=== PATIENT | female | born 1935 | race Caucasian/White ===

== ENCOUNTER 2016-08-04 07:25 | Day surgery (SDC) | payer MEDICARE, BC ==
[2016-07-30 10:03] LABS: HEMATOCRIT 40.5 % (36.0-48.0); HEMOGLOBIN 13.6 g/dL (12.0-16.0)
[2016-07-30 10:12] LABS: BUN (BLOOD UREA NITROGEN) 15 MG/DL (6-23); CALCIUM, SERUM 9.7 MG/DL (8.5-10.4); CHLORIDE, SERUM 103 MMOL/L (96-112); CO2 (CARBON DIOXIDE) 34 MMOL/L (24-34); CREATININE 0.76 MG/DL (0.55-1.02); GFR AFRICAN AMERICAN 85 ML/MIN (>=60); GFR NON AFRICAN AMERICAN 74 ML/MIN (>=60); GLUCOSE, SERUM 93 MG/DL (60-99); SODIUM, SERUM 142 MMOL/L (135-148)
--- NOTE | ~2016-08-04 | OP ---
Record Of [facility] [address] [place]. [address] NAME: RABIA MENDOZA : 35 STATUS : [facility]#: [id number] AGE: 81 ADM/REG DATE : 08/04/16 MR#: [id number] REPORT SERV DATE: 08/04/16 DICTATED BY: LUCIAN DYE DATE: 08/04/16 REPORT STATUS : Draft TRANSCRIBED BY: MODL DATE: 08/04/16 DATE OF PROCEDURE: 08/04/2016 PREOPERATIVE DIAGNOSES: 1. Nasal septal fracture. 2. Severe nasal obstruction. 3. Bilateral inferior turbinate hypertrophy. POSTOPERATIVE DIAGNOSES: 1. Nasal septal fracture. 2. Severe nasal obstruction. 3. Bilateral inferior turbinate hypertrophy. PROCEDURES: 1. Closed reduction of nasal fracture. 2. Septoplasty. 3. Bilateral inferior turbinoplasty. ANESTHESIA: General. COMPLICATIONS: None. COUNTS: All counts correct following the procedure. ESTIMATED BLOOD LOSS: 20 mL. PREOPERATIVE INFORMED CONSENT: We discussed the risks and benefits of surgery including, but not limited to bleeding, infection, possible CSF leak, possible septal perforation, possible saddle nose deformity, possible persistent nasal obstruction despite surgery. Consent is on the chart. PROCEDURE IN DETAIL: The patient was brought to the operating suite, placed on the operating table in supine position. General endotracheal anesthesia was initiated without incident. The patient's nasal dorsum, septum, and turbinates were injected with approximately 15 mL of 1% lidocaine with 1:100,000 epinephrine for hemostasis. Following this, using manual manipulation, the nasal bones were reduced back into the normal anatomic position. The patient was brought to the operating suite and placed on the operating table in the supine position. General endotracheal anesthesia was initiated without incident. The patient's head and neck were cleaned, prepped and draped in the usual sterile fashion. Following this, both sides of the septum and inferior turbinates were injected with 1% Lidocaine with 1:100,000 epinephrine for hemostasis. Approximately 12.0 cc. were used. Following this, a #15 blade scalpel was used to performed a left hemitransfixion incision down to the underlying septal cartilage. A mucoperichondrial flap was raised along the left side of the nasal septum using Canal [place] and Collier elevators. The bony cartilaginous Record Of [facility] [address] [facility] [place]. [address] NAME: RABIA MENDOZA : 35 STATUS : [facility] PAT#: [id number] AGE: 81 ADM/REG DATE : 08/04/16 MR#: [id number] REPORT SERV DATE: 08/04/16 DICTATED BY: LUCIAN DYE DATE: 08/04/16 REPORT STATUS : Draft TRANSCRIBED BY: MAYDA DATE: 08/04/16 junction was using the Collier elevator and then the mucoperiosteum was raised off both sides of the bony nasal septum. A thin strip of the cartilaginous septum along the maxillary crest was removed using a #15 blade scalpel and a Astrid elevator, allowing the cartilaginous septum to swing back in the midline. The maxillary crest was exposed using the Wilson elevator and removed using the 6.0 mm. straight osteotome. The deviated bony nasal septum was taken down using open Alexy-Chacon forceps, as well as Meliton forceps. Once the septal deviation had been corrected, the left hemitransfixion incision was closed using interrupted 4-0 chromic suture. The Xomed turbinate shaver was then used to perform submucous resection of both inferior turbinates without difficulty and both inferior turbinates were infractured and both the medial and lateral surfaces were cauterized using the Harmonic scalpel. Both inferior turbinates were then outfractured. Breathe-Easy septal splints were then placed on either side of the nasal septum and sutured in the midline using 2-0 nylon suture. The nasopharynx was suctioned free of any blood clots. The patient was awakened from anesthesia and taken to the recovery room in stable condition. MINNIE/MAYDA Lucian Dye M.D. / [id number] CC: Alicia Lyman DANIEL MARTIN
[~2016-08-04 07:25] MED LIST: ACET500CAP PO; COUMADIN3 MG PO; COZAAR100 MG PO; MOBIC15 MG PO; PCET PO; PRILO PO; ZYRTEC ALLGY10 MG PO
== END 2016-08-04 12:31 | disposition home or self-care (01) ==
LOC: SDC 07:25
PROVIDERS: Otolaryngology
PROC: 09BM0ZZ Excision of Nasal Septum, Open Approach (ICD-10-PCS; 2016-08-04)
PROC: 09SL0ZZ Reposition Nasal Turbinate, Open Approach (ICD-10-PCS; 2016-08-04)
PROC: 0NSBXZZ Reposition Nasal Bone, External Approach (ICD-10-PCS; principal; 2016-08-04 09:00)
DX: S02.2XXA Fracture of nasal bones, initial encounter for closed fracture (principal); W19.XXXA Unspecified fall, initial encounter; J34.89 Other specified disorders of nose and nasal sinuses; J34.3 Hypertrophy of nasal turbinates; I10 Essential (primary) hypertension; Z90.710 Acquired absence of both cervix and uterus; Z98.49 Cataract extraction status, unspecified eye; Z96.652 Presence of left artificial knee joint; Z83.3 Family history of diabetes mellitus; Z80.9 Family history of malignant neoplasm, unspecified; Z88.1 Allergy status to other antibiotic agents; Z88.5 Allergy status to narcotic agent; Z79.1 Long term (current) use of non-steroidal anti-inflammatories (NSAID); Z79.899 Other long term (current) drug therapy
CPT/HCPCS: 80048; 85014; 85018; 88300; 93005; J0690; J2270; J2405; J2710; J3010